=== PATIENT | female | born 2005 | race Caucasian/White ===

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

== ENCOUNTER 2024-04-06 10:42 | Inpatient (IN) | payer MEDICAID ==
--- NOTE | 2024-04-06 16:39 | XRAY ---
Indication: Excessive growth. Two-dimensional OB ultrasound performed. Comparison: None for this . Single intrauterine currently in cephalic presentation. heart rate 159 BPM. Visualized stomach and bladder unremarkable. Anterior placenta without abruption/previa. BPD measures 8.78 cm corresponding to 35 weeks 3 days. HC measures 31.69 cm corresponding to 35 weeks 4 days. AC measures 32.71 cm corresponding to 36 weeks 4 days. FL measures 7.05 cm corresponding to 36 weeks 1 day. Estimated weight 6 lbs. 6 oz., +/-15 ounces. Approximately 48 percentile. STEPHANIA is 4.2 cm. Impression: Single viable intrauterine with mean gestational age 36 weeks 4 days. Expected date confinement is May 04, 2024.
[2024-04-06 16:56] LABS: AMNISURE TEST RESULTS POSITIVE (NEGATIVE)
[2024-04-06] MEDS ORDERED: Nubain 10 MG/ML IV PRN (17:05)
[2024-04-06] MEDS ORDERED: Zofran 4 MG/2 ML VIAL IV PRN (17:05)
[2024-04-06] MEDS ORDERED: XYLOCAINE 1% HCL 20 ML MDV IJ PRN (17:05)
[2024-04-06] MEDS ORDERED: STADOL 2 MG IV PRN (17:05)
[2024-04-06 17:35] LABS: Absolute Neutrophil Ct (ANC) 12.42 x10^3/uL (1.56-6.13); BASOPHIL % 0.2 % (0.1-1.2); Basophil (Absolute #) 0.03 x10^3/uL (0.01-0.08); Eosinophil % 0.3 % (0.7-5.8); Eosinophil (Absolute #) 0.05 x10^3/uL (0.04-0.36); Hematocrit 29.1 % (34.1-44.9); Hemoglobin 10.2 g/dL (11.2-15.7); IMMATURE GRAN # 0.12 x10^3u/L (0.001-0.031); IMMATURE GRAN % 0.8 % (0.001-0.429); Lymphocyte (Absolute #) 2.09 x10^3/uL (1.18-3.74); Lymphocytes % 13.6 % (19.3-51.7); Mean Cell Volume 92.7 fL (79.4-94.8); Mean Corpuscular Hemoglobin 32.5 pg (25.6-32.2); Mean Corpuscular Hgb Concent. 35.1 g/dL (32.2-35.5); Mean Platelet Volume 10.1 fL (9.4-12.3); Monocyte (Absolute #) 0.61 x10^3/uL (0.24-0.86); Neutrophil % 81.1 % (34.0-71.1); Platelet Count 251 x10^3/uL (182-369); Red Blood Count 3.14 x10^6/uL (3.93-5.22); Red Cell Distribution Width 13.1 % (11.7-14.4); White Blood Count 15.3 x10^3/uL (3.98-10.04)
[2024-04-06] MEDS ORDERED: CLINDAMYCIN-D5W 900 MG/50 ML*** 900 MG/50 ML BAG IV ONE (17:35)
[2024-04-06] MEDS: CLINDAMYCIN-D5W 900 MG/50 ML*** 900 MG/50 ML BAG IV SCH (17:47)
[2024-04-06] MEDS: Lactated Ringers 1,000 ML IV SCH (17:48)
[2024-04-06 18:03] LABS: Amphetamine,Urine NEGATIVE (NEGATIVE); Barbiturate,Urine NEGATIVE (NEGATIVE); Cocaine,Urine NEGATIVE (NEGATIVE); Methadone,Urine NEGATIVE (NEGATIVE); Opiate,Urine NEGATIVE (NEGATIVE); PCP,Urine NEGATIVE (NEGATIVE); THC,Urine NEGATIVE (NEGATIVE)
[2024-04-06] MEDS ORDERED: BRETHINE 1 MG/ML SQ PRN (18:15)
[2024-04-06] MEDS ORDERED: Ephedrine Sulfate 50 MG/ML IV PRN (18:15)
[2024-04-06 18:33] LABS: ABO TYPING O; Antibody Screen NEGATIVE (NEGATIVE); RH TYPING POSITIVE
[2024-04-06] MEDS: PITOCIN 30 UNITS/ LR 500 ML 30 UNITS/500 ML PLAST..BAG IV SCH (18:57)
[2024-04-06] MEDS: TYLENOL EXTRA STRENGTH 500 MG PO PRN (20:03)
[2024-04-06] MEDS: Lactated Ringers 1,000 ML IV ONE (20:13)
[2024-04-06] MEDS ORDERED: FENTANYL 2 MCG-BUPIV 0.125%-NS 250 ML Epidur 250 ML EPIDURAL ONE (20:13)
[2024-04-06] MEDS: FENTANYL 2 MCG-BUPIV 0.125%-NS 250 ML Epidur 250 ML EPIDURAL SCH (20:52)
[2024-04-06] MEDS ORDERED: XYLOCAINE 2%/Epi 1:200000 20ML VIAL MPF ONE (21:12)
[2024-04-07] MEDS: PITOCIN 30 UNITS/ LR 500 ML 30 UNITS/500 ML PLAST..BAG IV SCH (03:29)
[2024-04-07] MEDS ORDERED: MOTRIN 400 MG PO PRN (05:08)
[2024-04-07] MEDS ORDERED: Mylicon 80MG PO PRN (05:08)
[2024-04-07] MEDS ORDERED: LANSINOH 40 GM ONE (07:30)
[2024-04-07] MEDS ORDERED: Dermoplast Spray ONE (07:30)
[2024-04-07] MEDS: Dermoplast Spray TP PRN (07:33)
[2024-04-07] MEDS: TUCKS TP PRN (07:33)
[2024-04-07] MEDS: LANSINOH 40 GM TOP PRN (07:34)
[2024-04-07] MEDS: Adacel Vial IM ONE (09:14)
[2024-04-07] MEDS: Docusate Sodium 100 MG PO SCH (09:16)
[2024-04-07] MEDS: Prozac 20 MG PO SCH (09:56)
[2024-04-07] MEDS: TYLENOL EXTRA STRENGTH 500 MG PO PRN (14:06)
[2024-04-07 16:13] LABS: Absolute Neutrophil Ct (ANC) 16.36 x10^3/uL (1.56-6.13); BASOPHIL % 0.2 % (0.1-1.2); Basophil (Absolute #) 0.04 x10^3/uL (0.01-0.08); Eosinophil % 0.3 % (0.7-5.8); Eosinophil (Absolute #) 0.05 x10^3/uL (0.04-0.36); Hematocrit 25.7 % (34.1-44.9); IMMATURE GRAN # 0.15 x10^3u/L (0.001-0.031); IMMATURE GRAN % 0.8 % (0.001-0.429); Lymphocyte (Absolute #) 1.96 x10^3/uL (1.18-3.74); Lymphocytes % 10.2 % (19.3-51.7); Mean Cell Volume 93.8 fL (79.4-94.8); Mean Corpuscular Hemoglobin 32.8 pg (25.6-32.2); Mean Platelet Volume 9.7 fL (9.4-12.3); Monocytes % 3.6 % (4.7-12.5); Neutrophil % 84.9 % (34.0-71.1); Platelet Count 220 x10^3/uL (182-369); Red Blood Count 2.74 x10^6/uL (3.93-5.22); Red Cell Distribution Width 13.1 % (11.7-14.4); White Blood Count 19.3 x10^3/uL (3.98-10.04)
[2024-04-08 05:11] LABS: Absolute Neutrophil Ct (ANC) 10.16 x10^3/uL (1.56-6.13); BASOPHIL % 0.4 % (0.1-1.2); Basophil (Absolute #) 0.05 x10^3/uL (0.01-0.08); Eosinophil % 0.9 % (0.7-5.8); Eosinophil (Absolute #) 0.12 x10^3/uL (0.04-0.36); Hematocrit 25.4 % (34.1-44.9); Hemoglobin 8.7 g/dL (11.2-15.7); IMMATURE GRAN # 0.12 x10^3u/L (0.001-0.031); IMMATURE GRAN % 0.9 % (0.001-0.429); Lymphocyte (Absolute #) 2.84 x10^3/uL (1.18-3.74); Lymphocytes % 20.4 % (19.3-51.7); Mean Cell Volume 95.5 fL (79.4-94.8); Mean Corpuscular Hemoglobin 32.7 pg (25.6-32.2); Mean Corpuscular Hgb Concent. 34.3 g/dL (32.2-35.5); Mean Platelet Volume 10.2 fL (9.4-12.3); Monocyte (Absolute #) 0.63 x10^3/uL (0.24-0.86); Monocytes % 4.5 % (4.7-12.5); Neutrophil % 72.9 % (34.0-71.1); Platelet Count 210 x10^3/uL (182-369); Red Blood Count 2.66 x10^6/uL (3.93-5.22); Red Cell Distribution Width 13.3 % (11.7-14.4); White Blood Count 13.9 x10^3/uL (3.98-10.04)
--- NOTE | 2024-04-08 07:57 | PCM.NOTE ---
Date and Time: 04/08/24 0755 Subjective Assessment: ppd 1 sp pt resting in bed and doing well able to ambulate and tolerate diet vss afebrile abd; soft uterus; firm lochia; mild hgb;8.7 a/p sp ppd 1 anemia will dc home tomorrow will continue iron supplementation bid should fu in office in 3 wks Objective Data Vital Signs: Vital Signs - 24 hr Temp Pulse Resp BP Pulse Ox 04/08/24 02:00 98.5 F 75 16 106/62 98 04/07/24 22:00 97.7 F 81 16 110/57 100 04/07/24 18:35 98.9 F 04/07/24 14:16 98.8 F 59 L 18 102/57 100 04/07/24 11:16 99.0 F 71 16 114/61 100 04/07/24 07:58 99.1 F 72 16 116/63 99 Pain Assessment - Last Documented Pain Intensity [Lower Anterior 1 ] Pain Intensity 1 Pain Scale Used 0-10 Pain Scale Intake and Output: Intake & Output 04/05/24 04/06/24 04/07/24 04/08/24 11:59 11:59 11:59 11:59 Intake Total 2740 Output Total 1330 Balance 1410 Weight 107.501 kg Lab Results: Lab Results-Last 24 Hours 04/07/24 04/08/24 Range/Units 16:10 04:06 WBC 19.3 H 13.9 H (3.98-10.04) x10^3/uL RBC 2.74 L 2.66 L (3.93-5.22) x10^6/uL Hgb 9.0 L 8.7 L (11.2-15.7) g/dL Hct 25.7 L 25.4 L (34.1-44.9) % MCV 93.8 95.5 H (79.4-94.8) fL MCH 32.8 H 32.7 H (25.6-32.2) pg MCHC 35.0 34.3 (32.2-35.5) g/dL RDW 13.1 13.3 (11.7-14.4) % Plt Count 220 210 (182-369) x10^3/uL MPV 9.7 10.2 (9.4-12.3) fL Gran % 84.9 H 72.9 H (34.0-71.1) % Immature Gran % (Auto) 0.8 H 0.9 H (0.001-0.429) % Nucleat RBC Rel Count 0.0 0.0 (0.00-0.2) % Eos # (Auto) 0.05 0.12 (0.04-0.36) x10^3/uL Immature Gran # (Auto) 0.15 H 0.12 H (0.001-0.031) x10^3u/L Absolute Lymphs (auto) 1.96 2.84 (1.18-3.74) x10^3/uL Absolute Monos (auto) 0.70 0.63 (0.24-0.86) x10^3/uL Absolute Nucleated RBC 0.00 0.00 (0.00-0.012) x10^3u/L Lymphocytes % 10.2 L 20.4 (19.3-51.7) % Monocytes % 3.6 L 4.5 L (4.7-12.5) % Eosinophils % 0.3 L 0.9 (0.7-5.8) % Basophils % 0.2 0.4 (0.1-1.2) % Absolute Granulocytes 16.36 H 10.16 H (1.56-6.13) x10^3/uL Basophils # 0.04 0.05 (0.01-0.08) x10^3/uL Radiology Exams: Radiology Procedures Category Date Time Status OB FOLLOW UP PER FETUS [US] Routine Exams 04/06/24 16:05 Completed Assessment/Plan (1) Vaginal delivery Current Visit: Yes Status: Acute Code(s): O80 - ENCOUNTER FOR FULL-TERM UNCOMPLICATED DELIVERY (2) premature rupture of membranes (PPROM) delivered, current hospitalization Current Visit: Yes Status: Acute Code(s): O42.919 - PRETRM TULIO ROM, UNSP TIME BETW RUPT AND ONST LABR, UNSP TRI
--- NOTE | 2024-04-08 08:02 | PCM.DS ---
Discharge Summary Date of Admission: 04/06/24 16:31 Admitting Physician: FEI DALLAS DO Consults: Consults on Case 04/06/24 18:16 Notify Anesthesia Provider PRN 04/07/24 09:59 Navigation ONCE Primary Care Provider: FEI DALLAS DO Allergies Allergies ibuprofen [From Advil] Allergy (Mild, Verified 04/06/24 19:46) Rash States can take any type of ibuprofen except Advil brand. amoxicillin Allergy (Verified 04/06/24 19:46) Penicillins Allergy (Verified 04/06/24 19:46) Hospital Summary - Hospital Course Hospital Course: pt admitted on april 06 with pprom at 36 1/7 wks gestation and was noted being 4 /80/-2 upon admission. pt subsequently progressed and had received antibiotic therapy of clindamycin and subsequently delivered on april 07 at 328 am delivering live baby boy without complication with nuchal cord x 1 that had been reduced during delivery. pt was noted having a right labial tear repaired with 2-0 chromic suture and hemostasis obtained. pt was noted having hgb of 8.7 during period and was sent rx of iron sulfate 325mg bid. pt doing well at this time and stable for discharge on april 09. pt advised to fu in office in 3 wks for care and was instructed to call me for any issues that may arise upon discharge. all questions answered to her satisfaction and at this time stable for discharge on april 09. - Vitals & Intake/Output Vital Signs: Vital Signs Temperature 98.5 F 04/08/24 02:00 Pulse Rate 75 04/08/24 02:00 Respiratory Rate 16 04/08/24 02:00 Blood Pressure 106/62 04/08/24 02:00 O2 Sat by Pulse Oximetry 98 04/08/24 02:00 Intake & Output: Intake & Output 04/05/24 04/06/24 04/07/24 04/08/24 11:59 11:59 11:59 11:59 Intake Total 2740 Output Total 1330 Balance 1410 Weight 107.501 kg - Lab Result Diagrams: 04/08/24 04:06 Lab Results-Last 24 Hrs: Lab Results-Last 24 Hours 04/07/24 04/08/24 Range/Units 16:10 04:06 WBC 19.3 H 13.9 H (3.98-10.04) x10^3/uL RBC 2.74 L 2.66 L (3.93-5.22) x10^6/uL Hgb 9.0 L 8.7 L (11.2-15.7) g/dL Hct 25.7 L 25.4 L (34.1-44.9) % MCV 93.8 95.5 H (79.4-94.8) fL MCH 32.8 H 32.7 H (25.6-32.2) pg MCHC 35.0 34.3 (32.2-35.5) g/dL RDW 13.1 13.3 (11.7-14.4) % Plt Count 220 210 (182-369) x10^3/uL MPV 9.7 10.2 (9.4-12.3) fL Gran % 84.9 H 72.9 H (34.0-71.1) % Immature Gran % (Auto) 0.8 H 0.9 H (0.001-0.429) % Nucleat RBC Rel Count 0.0 0.0 (0.00-0.2) % Eos # (Auto) 0.05 0.12 (0.04-0.36) x10^3/uL Immature Gran # (Auto) 0.15 H 0.12 H (0.001-0.031) x10^3u/L Absolute Lymphs (auto) 1.96 2.84 (1.18-3.74) x10^3/uL Absolute Monos (auto) 0.70 0.63 (0.24-0.86) x10^3/uL Absolute Nucleated RBC 0.00 0.00 (0.00-0.012) x10^3u/L Lymphocytes % 10.2 L 20.4 (19.3-51.7) % Monocytes % 3.6 L 4.5 L (4.7-12.5) % Eosinophils % 0.3 L 0.9 (0.7-5.8) % Basophils % 0.2 0.4 (0.1-1.2) % Absolute Granulocytes 16.36 H 10.16 H (1.56-6.13) x10^3/uL Basophils # 0.04 0.05 (0.01-0.08) x10^3/uL Micro Results-Entire Visit: Microbiology 04/06/24 22:00 Urine Culture - Preliminary Urine, Indwelling Catheter GRAM NEGATIVE ID AND SENSITIVITY PENDING - Radiology Exams Ordered Rad Exams-Entire Visit: Radiology Procedures Category Date Time Status OB FOLLOW UP PER FETUS [US] Routine Exams 04/06/24 16:05 Completed - Procedures and Test Procedures and Tests throughout Hospitalization: Therapy Orders & Screens 04/07/24 03:38 Standby ROUTINE Comment: Diagnosis: IUP Final Diagnosis/Problem List - Final Discharge Diagnosis/Problem (1) Vaginal delivery Current Visit: Yes Status: Acute Code(s): O80 - ENCOUNTER FOR FULL-TERM UNCOMPLICATED DELIVERY (2) premature rupture of membranes (PPROM) delivered, current hospitalization Current Visit: Yes Status: Acute Code(s): O42.919 - PRETRM TULIO ROM, UNSP TIME BETW RUPT AND ONST LABR, UNSP TRI - Discharge Disposition: Home, Self-Care Condition: Stable Prescriptions: No Action Nitrofurantoin Macro 100 mg [Macrobid 100MG Capsule] 100 mg PO DAILY Fluoxetine HCl 20 mg PO DAILY Pnv No.95/Ferrous Fum/Folic AC [ Vitamin Tablet] 1 each PO DAILY Ferrous Sulfate [Iron] 325 mg PO BID Docusate Sodium [Stool Softener] 100 mg PO BID Follow up with: FEI DALLAS DO [Primary Care Provider] - 3 weeks (should call me for any issues that may arise upon discharge should fu in office in 3 wks rx for iron sulfate sent to her pharmacy to take twice daily)
[2024-04-08 08:37] LABS: RPR Non Reactive (Non Reactive)
[2024-04-08] MEDS: FERREX 150 PO SCH (09:48)
[2024-04-08] MEDS ORDERED: FERREX 150 PO SCH (10:00)
[2024-04-08 21:52] VITALS: TEMP 98.8
[2024-04-09 03:05] VITALS: O2SAT 99
[2024-04-09 09:34] VITALS: BP 131/75; PULSE 88; RESP 18
[2024-04-10 18:57] LABS: Benzodiazepines Negative ng/mL (Cutoff=300)
== END 2024-04-09 09:25 | disposition home or self-care (01) | DRG 807 ==
LOC: RAD 16:02 → EDSTATUS 16:30 → OB 16:30 → OBSVTOIN 16:31 → OB 16:31
PROVIDERS: ADMIT Obstetrics & Gynecology; ATTEND Obstetrics & Gynecology
PROC: 10E0XZZ Delivery of Products of Conception, External Approach (ICD-10-PCS; principal; 2024-04-07)
PROC: 0HQ9XZZ Repair Perineum Skin, External Approach (ICD-10-PCS; 2024-04-07)
DX: O42.919 Preterm premature rupture of membranes, unspecified as to length of time between rupture and onset of labor, unspecified trimester (principal); Z37.0 Single live birth; O69.81X0 Labor and delivery complicated by cord around neck, without compression, not applicable or unspecified; O70.0 First degree perineal laceration during delivery; Z3A.36 36 weeks gestation of pregnancy; O36.63X0 Maternal care for excessive fetal growth, third trimester, not applicable or unspecified; D64.9 Anemia, unspecified
CPT/HCPCS: 36415; 59409; 76816; 80307; 84112; 85025; 86592; 86850; 86900; 86901; 87077; 87086; 87186; 90471; 90715; 94799; J2590; A9270-GY

== ENCOUNTER 2025-06-29 12:33 | Observation (INO) | payer OTHER ==
--- NOTE | 2025-06-29 14:14 | ERPHSYRPT ---
- History of Present Illness Time Seen by Provider: 06/29/25 14:09 Source: patient Exam Limitations: no limitations Patient Subjective Stated Complaint: PT STATES DR. DAMON TOLD HER TO COME TO THE ER TO GET FLUIDS Triage Nursing Assessment: PT ARRIVES TO THE ER VIA PRIVATE VEHICLE. PT AMBULATES INTO THE ER WITHOUT DIFFICULTIES. PT IS ALERT AND ORIENTED X4, NO SIGNS OF RESPIRATORY DISTRESS, PULSES PRESENT AND EQUAL BILATERALLY. PT STATES THAT SHE IS 14 WEEKS AND HAS BEEN EXPERIENCING SEVER NAUSEA/VOMITING SINCE SATURDAY.PT HAS NOT BEEN ABLE TO KEEP DOWN ANY FLUIDS OR FOODS. PT STATES THAT SHE CALLED DR. VILLAFANA OFFICE WHO THEN TOLD HER TO COME TO THE ER IN ORDER TO GET FLUIDS. PT STATES SHE DOES HAVE ZOFRAN 8 MG ODT THAT SHE TAKES AT HOME BUT IT HAS NOT TOUCHED THE NAUSEA OR VOMITING. PT IS PALE ON PRESENTATION. PT IS ACTIVELY VOMITING SPRITE THAT SHE TRIED TO DRINK DUE TO BEING THIRSTY. Physician History: Patient is a 20-year-old female no significant past medical history currently 14 weeks presents to our ED as a referral from her [employer] physician for evaluation and treatment of intractable nausea and vomiting and spite of taking her Zofran ODT. Patient states she has been vomiting since Saturday. Patient unable to tolerate solids or fluids. No pain. Patient states she feels thirsty but every time she tries to drink she vomits. Patient otherwise feels well. She voices no other complaints or concerns at this time. Patient denies vaginal bleeding. No pelvic pain. Portions of this note were created with voice recognition technology. There may be grammatical, spelling, punctuation or sound alike errors Timing/Duration: today Severity: moderate Modifying Factors: Improves With: nothing Associated Symptoms: denies symptoms Allergies/Adverse Reactions: ibuprofen [From Advil] Allergy (Mild, Verified 06/29/25 12:52) Rash States can take any type of ibuprofen except Advil brand. amoxicillin Allergy (Verified 06/29/25 12:52) Penicillins Allergy (Verified 06/29/25 12:52) Home Medications: Docusate Sodium [Stool Softener] 100 mg PO BID 04/06/24 [History] Ferrous Sulfate [Iron] 325 mg PO BID 04/06/24 [History] Fluoxetine HCl 20 mg PO DAILY 04/06/24 [History] Pnv No.95/Ferrous Fum/Folic AC [ Vitamin Tablet] 1 each PO DAILY 04/06/24 [History] Ondansetron [Ondansetron Odt] 8 mg PO Q8H PRN PRN 06/29/25 [History] Hx Tetanus, Diphtheria Vaccination/Date Given: (UNAWARE) Hx Influenza Vaccination/Date Given: No Hx Pneumococcal Vaccination/Date Given: No Immunizations Up to Date: Yes Travel Risk - International Travel Have you traveled outside of the country in past 3 weeks: No - Emerging Infectious Disease Are you exhibiting symptoms associated with any current EIDs: Yes Symptoms: Abdominal Pain, Vomitting - Review of Systems All Other Systems: Reviewed and Negative - Past Medical History Pertinent Past Medical History: Yes Neurological History: No Pertinent History ENT History: No Pertinent History Cardiac History: No Pertinent History Respiratory History: No Pertinent History Endocrine Medical History: No Pertinent History Musculoskeletal History: No Pertinent History GI Medical History: No Pertinent History History: No Pertinent History Psycho-Social History: Anxiety, Depression Female Reproductive Disorders: No Pertinent History - Past Surgical History Past Surgical History: No Neuro Surgical History: No Pertinent History Cardiac: No Pertinent History Respiratory: No Pertinent History Gastrointestinal: No Pertinent History Genitourinary: No Pertinent History Musculoskeletal: No Pertinent History Female Surgical History: No Pertinent History - Female History Hx Last Menstrual Period: 02/09/2025 Hx Now: Yes Gestational Age: 14 WEEKS - Social History Smoking Status: Never smoker Exposure to second hand smoke: No Drug Use: none - Social Determinants of Health Will the patient participate in the screening: Yes Do you worry about a steady place to live?: No Do you have any problems with any of the following?: No known problems In the past 12 months,have you had to go without utilities?: No Transportation Issues: No Has anyone in your support network made you feel unsafe?: No Have you or anyone in your house had to go w/o enough food: No - Nursing Vital Signs Nursing Vital Signs: Initial Vital Signs Temperature 98.2 F 06/29/25 12:48 Pulse Rate 103 H 06/29/25 12:48 Respiratory Rate 15 06/29/25 12:48 Blood Pressure 136/85 06/29/25 12:48 O2 Sat by Pulse Oximetry 98 06/29/25 12:48 Pain Scale Pain Intensity 0 - Physical Exam General Appearance: no apparent distress, alert Eye Exam: PERRL/EOMI, eyes nml inspection Ears, Nose, Throat Exam: normal ENT inspection, moist mucous membranes Neck Exam: normal inspection, full range of motion Respiratory Exam: normal breath sounds, lungs clear, airway intact, No respiratory distress Cardiovascular Exam: regular rate/rhythm, normal heart sounds Gastrointestinal/Abdomen Exam: soft, normal bowel sounds, No tenderness, No mass Pelvic Exam: normal external exam, other (No active bleeding), No adnexal mass, No cervical motion tenderness, No uterine tenderness Back Exam: normal inspection, normal range of motion, No CVA tenderness, No vertebral tenderness Extremity Exam: normal inspection, normal range of motion, pelvis stable Neurologic Exam: alert, oriented x 3, cooperative, normal mood/affect, sensation nml, No motor deficits Skin Exam: normal color, warm, dry, No rash Lymphatic Exam: No adenopathy SpO2 Interpretation: normal SpO2: 99 O2 Delivery: Room Air - Course Nursing assessment & vital signs reviewed: Yes Ordered Tests: Active Orders 24 hr Category Date Time Status IV Insertion STAT Care 06/29/25 14:42 Active CBC W DIFF Stat Lab 06/29/25 15:00 Completed CMP Stat Lab 06/29/25 15:00 Completed LIPASE Stat Lab 06/29/25 15:00 Completed TROPONIN Q4H Lab 06/29/25 15:00 Completed TROPONIN Q4H Lab 06/29/25 18:45 Ordered TROPONIN Q4H Lab 06/29/25 22:45 Ordered UA W/RFX UR CULTURE Stat Lab 06/29/25 15:21 Completed Transfer Order Routine Transfer 06/29/25 Ordered Medication Summary Generic Name Dose Route Start Last Admin Trade Name Freq PRN Reason Stop Dose Admin Dextrose/Sodium Chloride 1,000 mls @ 100 mls/hr 06/29/25 14:45 06/29/25 15:23 Dextrose 5% -0.45 Nacl 1000 Ml IV 07/29/25 14:44 100 mls/hr .Q10H MATIAS Administration Discontinued Medications Generic Name Dose Route Start Last Admin Trade Name Freq PRN Reason Stop Dose Admin Metoclopramide HCl 10 mg 06/29/25 14:44 06/29/25 15:23 Metoclopramide Hcl 10 Mg/2 Ml Vial IV 06/29/25 14:45 10 mg STAT ONE Administration Metoclopramide HCl Confirm 06/29/25 15:18 Metoclopramide Hcl 10 Mg/2 Ml Vial Administered 06/29/25 15:19 Dose 10 mg .ROUTE .STK-MED ONE Lab/Rad Data: Laboratory Result Diagrams 06/29/25 15:00 06/29/25 15:00 Laboratory Results 06/29/25 06/29/25 06/29/25 Range/Units 15:21 15:00 15:00 WBC (3.98-10.04) x10^3/uL RBC (3.93-5.22) x10^6/uL Hgb (11.2-15.7) g/dL Hct (34.1-44.9) % MCV (79.4-94.8) fL MCH (25.6-32.2) pg MCHC (32.2-35.5) g/dL RDW (11.7-14.4) % Plt Count (182-369) x10^3/uL MPV (9.4-12.3) fL Gran % (34.0-71.1) % Immature Gran % (Auto) (0.001-0.429) % Nucleat RBC Rel Count (0.00-0.2) % Eos # (Auto) (0.04-0.36) x10^3/uL Immature Gran # (Auto) (0.001-0.031) x10^3u/L Absolute Lymphs (auto) (1.18-3.74) x10^3/uL Absolute Monos (auto) (0.24-0.86) x10^3/uL Absolute Nucleated RBC (0.00-0.012) x10^3u/L Lymphocytes % (19.3-51.7) % Monocytes % (4.7-12.5) % Eosinophils % (0.7-5.8) % Basophils % (0.1-1.2) % Absolute Granulocytes (1.56-6.13) x10^3/uL Basophils # (0.01-0.08) x10^3/uL Sodium 139 (135-145) mmol/L Potassium 3.8 (3.5-5.1) mmol/L Chloride 105 (98-107) mmol/L Carbon Dioxide 21 L (22-30) mmol/L Anion Gap 17.6 H (5-15) MEQ/L BUN 9 (7-17) mg/dL Creatinine 0.49 L (0.52-1.04) mg/dL Estimated GFR 137.4 ML/MIN Glucose 115 H (74-106) mg/dL Calcium 9.6 (8.4-10.2) mg/dL Total Bilirubin 1.00 (0.2-1.3) mg/dL AST 22 (14-36) U/L ALT 13 (0-35) U/L Alkaline Phosphatase 82 (38-126) U/L Troponin I < 0.012 (0.000-0.033) ng/mL Serum Total Protein 8.2 (6.3-8.2) g/dL Albumin 4.9 (3.5-5.0) g/dL Lipase 57 (23-300) U/L Urine Color Dark Yellow A (Yellow) Urine Appearance Clear (Clear) Urine pH 6.0 (4.6-8.0) Ur Specific [place] >=1.030 A (1.005-1.030) Urine Protein 100 A (Negative) Urine Glucose (UA) Negative (Negative) mg/dL Urine Ketones >=160 A (Negative) Urine Blood Negative (Negative) Urine Nitrite Negative (Negative) Urine Bilirubin Small A (Negative) Urine Urobilinogen 1.0 A (0.2) mg/dL Ur Leukocyte Esterase Negative (Negative) U Hyaline Cast (Auto) NONE SEEN (0-2) /LPF Urine Microscopic RBC 3-5 (0-5) /HPF Urine Microscopic WBC 0-2 (0-5) /HPF Ur Epithelial Cells Few (None Seen) /HPF Urine Bacteria None Seen (None Seen) /HPF Urine Culture Reflexed NO (NO) 06/29/25 Range/Units 15:00 WBC 18.3 H (3.98-10.04) x10^3/uL RBC 3.77 L (3.93-5.22) x10^6/uL Hgb 12.3 (11.2-15.7) g/dL Hct 34.9 (34.1-44.9) % MCV 92.6 (79.4-94.8) fL MCH 32.6 H (25.6-32.2) pg MCHC 35.2 (32.2-35.5) g/dL RDW 13.5 (11.7-14.4) % Plt Count 342 (182-369) x10^3/uL MPV 9.7 (9.4-12.3) fL Gran % 93.6 H (34.0-71.1) % Immature Gran % (Auto) 0.5 H (0.001-0.429) % Nucleat RBC Rel Count 0.0 (0.00-0.2) % Eos # (Auto) 0 L (0.04-0.36) x10^3/uL Immature Gran # (Auto) 0.09 H (0.001-0.031) x10^3u/L Absolute Lymphs (auto) 0.77 L (1.18-3.74) x10^3/uL Absolute Monos (auto) 0.29 (0.24-0.86) x10^3/uL Absolute Nucleated RBC 0.00 (0.00-0.012) x10^3u/L Lymphocytes % 4.2 L (19.3-51.7) % Monocytes % 1.6 L (4.7-12.5) % Eosinophils % 0.0 L (0.7-5.8) % Basophils % 0.1 (0.1-1.2) % Absolute Granulocytes 17.13 H (1.56-6.13) x10^3/uL Basophils # 0.02 (0.01-0.08) x10^3/uL Sodium (135-145) mmol/L Potassium (3.5-5.1) mmol/L Chloride (98-107) mmol/L Carbon Dioxide (22-30) mmol/L Anion Gap (5-15) MEQ/L BUN (7-17) mg/dL Creatinine (0.52-1.04) mg/dL Estimated GFR ML/MIN Glucose (74-106) mg/dL Calcium (8.4-10.2) mg/dL Total Bilirubin (0.2-1.3) mg/dL AST (14-36) U/L ALT (0-35) U/L Alkaline Phosphatase (38-126) U/L Troponin I (0.000-0.033) ng/mL Serum Total Protein (6.3-8.2) g/dL Albumin (3.5-5.0) g/dL Lipase (23-300) U/L Urine Color (Yellow) Urine Appearance (Clear) Urine pH (4.6-8.0) Ur Specific [place] (1.005-1.030) Urine Protein (Negative) Urine Glucose (UA) (Negative) mg/dL Urine Ketones (Negative) Urine Blood (Negative) Urine Nitrite (Negative) Urine Bilirubin (Negative) Urine Urobilinogen (0.2) mg/dL Ur Leukocyte Esterase (Negative) U Hyaline Cast (Auto) (0-2) /LPF Urine Microscopic RBC (0-5) /HPF Urine Microscopic WBC (0-5) /HPF Ur Epithelial Cells (None Seen) /HPF Urine Bacteria (None Seen) /HPF Urine Culture Reflexed (NO) - Progress Progress: improved Progress Note: Spoke to Dr. Damon at 5:05 PM. In light of her significant ketones in urine he advises admitting for hyperemesis gravidarum. 06/29/25 17:05 Patient is a 20-year-old female no significant past medical history currently 14 weeks presents to our ED as a referral from her [employer] physician for evaluation and treatment of intractable nausea and vomiting and spite of taking her Zofran ODT. Patient states she has been vomiting since Saturday. Physical exam otherwise nonremarkable. heart tones are in the 150s. Patient has no complaints regarding her . No vaginal discharge or cramping. Laboratory workup suggest dehydration. Patient has a significant ketonuria. Patient received D5 half-normal and Reglan. Symptoms improved. However patient not ready for discharge at this time. Patient will be admitted for further evaluation and treatment. Plan of care discussed with patient. She agrees to admission to [facility] for further evaluation and treatment. Leukocytosis observed on blood workup. However this is likely secondary to hyperemesis gravidarum. There are no obvious nidus of infection. No fever. No UTI. No cough. No skin complaints or issues observed. Differential diagnosis includes hyperemesis gravidarum, gastritis, viral enteritis Portions of this note were created with voice recognition technology. There may be grammatical, spelling, punctuation or sound alike errors Complexity of problems addressed is moderate acute complicated. No critical care time. Complex of data reviewed and analyzed is extensive. Test ordered test reviewed results analyzed and correlated clinically with history and physical exam. Management discussed with Dr. Damon who accepts admission to observation. Risk of complication and or risk of morbidity/mortality of patient management is high. Patient requires hospitalization for further evaluation and treatment. Vital stable. Time spent to admit patient is approximately 20 minutes. Plan of care established for shared decision making. No social determinants of health present to impede follow-up. Portions of this note were created with voice recognition technology. There may be grammatical, spelling, punctuation or sound alike errors 06/29/25 17:23 06/29/25 17:26 Counseled pt/family regarding: lab results, diagnosis - Departure Departure Disposition: Home Clinical Impression: Hyperemesis gravidarum, Dehydration, Ketonuria, Leukocytosis Condition: Stable Critical Care Time: No Referrals: KENNETH LUCAS, DIRECTOR OF TEACHER EDUCATION [Primary Care Provider, [facility]] - Follow up/PCP as directed Additional Instructions: Discharge/Care Plan [facility] [employer] was seen on 06/29/25 in the Emergency Room. The patient was counseled regarding Diagnosis,Lab results, Imaging studies, need for follow up and when to return to the Emergency Room. Prescriptions given: Discharge Note I have spoken with the patient and/or caregivers. I have explained the patient's condition, diagnosis and treatment plan based on the information available to me at this time. I have answered the patient's and/or caregiver's questions and addressed any concerns. The patient and/or caregivers have as good understanding of the patient's diagnosis, condition and treatment plan as can be expected at this point. The vital signs have been stable. The patient's condition is stable and appropriate for discharge from the emergency department. The patient will pursue further outpatient evaluation with the primary care physician or other designated or consulting physician as outlined in the discharge instructions. The patient and/or caregivers are agreeable to this plan of care and follow-up instructions have been explained in detail. The patient and/or caregivers have received these instruction. The patient/and or caregivers are aware that any significant change in condition or worsening of symptoms should prompt an immediate return to this or the closest emergency department or call 911.
[2025-06-29 15:07] LABS: BASOPHIL % 0.1 % (0.1-1.2); Basophil (Absolute #) 0.02 x10^3/uL (0.01-0.08); Eosinophil (Absolute #) 0 x10^3/uL (0.04-0.36); Hematocrit 34.9 % (34.1-44.9); Hemoglobin 12.3 g/dL (11.2-15.7); IMMATURE GRAN # 0.09 x10^3u/L (0.001-0.031); IMMATURE GRAN % 0.5 % (0.001-0.429); Lymphocyte (Absolute #) 0.77 x10^3/uL (1.18-3.74); Mean Corpuscular Hemoglobin 32.6 pg (25.6-32.2); Mean Corpuscular Hgb Concent. 35.2 g/dL (32.2-35.5); Monocyte (Absolute #) 0.29 x10^3/uL (0.24-0.86); NUCLEATED RBC # 0.00 x10^3u/L (0.00-0.012); NUCLEATED RBC % 0.0 % (0.00-0.2); Platelet Count 342 x10^3/uL (182-369); Red Blood Count 3.77 x10^6/uL (3.93-5.22); White Blood Count 18.3 x10^3/uL (3.98-10.04)
[2025-06-29] MEDS ORDERED: Reglan 10 MG/2 ML ONE (15:18)
[2025-06-29] MEDS ORDERED: Dextrose 5% -0.45 NaCl 1000 ML 1,000 ML IV ONE (15:18)
[2025-06-29] MEDS: Dextrose 5% -0.45 NaCl 1000 ML 1,000 ML IV SCH (15:23)
[2025-06-29] MEDS: Reglan 10 MG/2 ML IV ONE (15:23)
[2025-06-29 15:25] LABS: Calcium 9.6 mg/dL (8.4-10.2); Carbon Dioxide 21.0 mmol/L (22-30); Creatinine 1 0.49 mg/dL (0.52-1.04); EST GLOMERULAR FILTRATION RATE 137.4 ML/MIN; Glucose 115.0 mg/dL (74-106); Potassium 3.8 mmol/L (3.5-5.1); SGOT/AST 22.0 U/L (14-36); SGPT/ALT 13.0 U/L (0-35); Total Protein 8.2 g/dL (6.3-8.2)
[2025-06-29 16:53] LABS: Glucose, Urine Negative (Negative); Protein,Urine Dip 100 (Negative); WBC 0-2 /HPF (0-5)
[2025-06-29] MEDS ORDERED: Lactated Ringers 1,000 ML IV ONE (17:28)
[2025-06-29] MEDS: Lactated Ringers 1,000 ML IV STA (17:29)
[2025-06-29] MEDS ORDERED: Zofran 4 MG/2 ML VIAL IV PRN (21:40)
[2025-06-29] MEDS: Zofran 4 MG/2 ML VIAL IV PRN (21:48)
[2025-06-30] MEDS: Lactated Ringers 1,000 ML IV SCH ×2 (01:11→11:58)
[2025-06-30 01:17] VITALS: RESP 16
[2025-06-30] MEDS: Reglan 10 MG/2 ML IV SCH ×2 (02:23→10:17)
[2025-06-30 05:26] LABS: Calcium 8.6 mg/dL (8.4-10.2); Carbon Dioxide 23.0 mmol/L (22-30); Creatinine 1 0.49 mg/dL (0.52-1.04); EST GLOMERULAR FILTRATION RATE 137.4 ML/MIN; Glucose 98.0 mg/dL (74-106); Potassium 3.1 mmol/L (3.5-5.1); SGOT/AST 96.0 U/L (14-36); SGPT/ALT 71.0 U/L (0-35); Total Protein 6.5 g/dL (6.3-8.2)
[2025-06-30] MEDS: POTASSIUM CHLORIDE 20 mEq IN WATER 100ML 20 MEQ/100 ML BAG IV ONE (06:54)
[2025-06-30] MEDS ORDERED: Zofran 4 MG/2 ML VIAL IV PRN (07:11)
[2025-06-30] MEDS ORDERED: THIAMINE 200 MG/2 ML IV SCH (07:15)
--- NOTE | 2025-06-30 08:00 | PCM.NOTE ---
Date and Time: 06/30/25 0757 Subjective Assessment: pt admitted yesterday at 14 wks gestation for hyperemesis secondary to ongoing nausea and vomiting. pt was noted having large ketones in urine as well as elevated specific gravity on ua. vss afebrile abd; soft ext; no clubbing cyanosis or edema labs reviewed a/p iup 14 wks with hyperemesis hypokalemia will continue zofran staggered with reglan will supplement with potassium and repeat labs Objective Data Vital Signs: Vital Signs - 24 hr Temp Pulse Resp BP BP Pulse Ox 06/30/25 06:04 98.4 F 65 16 96/52 06/30/25 00:24 98.6 F 80 16 107/64 98 06/29/25 19:45 98 F 88 18 110/71 100 06/29/25 18:08 98.3 F 80 16 139/73 100 06/29/25 17:28 99 06/29/25 17:00 112/57 99 06/29/25 16:30 114/57 06/29/25 16:00 107/69 100 06/29/25 15:30 120/72 99 06/29/25 15:29 82 16 135/72 100 06/29/25 14:30 72 16 144/83 99 06/29/25 14:00 83 15 131/103 99 06/29/25 13:30 84 16 134/93 99 06/29/25 13:00 85 17 130/82 99 06/29/25 12:51 102 H 17 136/85 99 06/29/25 12:48 98.2 F 103 H 15 136/85 98 Pain Assessment - Last Documented Pain Intensity 0 Intake and Output: Intake & Output 06/27/25 06/28/25 06/29/25 06/30/25 11:59 11:59 11:59 11:59 Intake Total 2600 Output Total 200 Balance 2400 Weight 85 kg Lab Results: Lab Results-Last 24 Hours 06/29/25 06/29/25 06/29/25 Range/Units 15:00 15:00 15:00 WBC 18.3 H (3.98-10.04) x10^3/uL RBC 3.77 L (3.93-5.22) x10^6/uL Hgb 12.3 (11.2-15.7) g/dL Hct 34.9 (34.1-44.9) % MCV 92.6 (79.4-94.8) fL MCH 32.6 H (25.6-32.2) pg MCHC 35.2 (32.2-35.5) g/dL RDW 13.5 (11.7-14.4) % Plt Count 342 (182-369) x10^3/uL MPV 9.7 (9.4-12.3) fL Gran % 93.6 H (34.0-71.1) % Immature Gran % (Auto) 0.5 H (0.001-0.429) % Nucleat RBC Rel Count 0.0 (0.00-0.2) % Eos # (Auto) 0 L (0.04-0.36) x10^3/uL Immature Gran # (Auto) 0.09 H (0.001-0.031) x10^3u/L Absolute Lymphs (auto) 0.77 L (1.18-3.74) x10^3/uL Absolute Monos (auto) 0.29 (0.24-0.86) x10^3/uL Absolute Nucleated RBC 0.00 (0.00-0.012) x10^3u/L Lymphocytes % 4.2 L (19.3-51.7) % Monocytes % 1.6 L (4.7-12.5) % Eosinophils % 0.0 L (0.7-5.8) % Basophils % 0.1 (0.1-1.2) % Absolute Granulocytes 17.13 H (1.56-6.13) x10^3/uL Basophils # 0.02 (0.01-0.08) x10^3/uL Sodium 139 (135-145) mmol/L Potassium 3.8 (3.5-5.1) mmol/L Chloride 105 (98-107) mmol/L Carbon Dioxide 21 L (22-30) mmol/L Anion Gap 17.6 H (5-15) MEQ/L BUN 9 (7-17) mg/dL Creatinine 0.49 L (0.52-1.04) mg/dL Estimated GFR 137.4 ML/MIN Glucose 115 H (74-106) mg/dL Calcium 9.6 (8.4-10.2) mg/dL Total Bilirubin 1.00 (0.2-1.3) mg/dL AST 22 (14-36) U/L ALT 13 (0-35) U/L Alkaline Phosphatase 82 (38-126) U/L Troponin I < 0.012 (0.000-0.033) ng/mL Serum Total Protein 8.2 (6.3-8.2) g/dL Albumin 4.9 (3.5-5.0) g/dL Lipase 57 (23-300) U/L Urine Color (Yellow) Urine Appearance (Clear) Urine pH (4.6-8.0) Ur Specific [place] (1.005-1.030) Urine Protein (Negative) Urine Glucose (UA) (Negative) mg/dL Urine Ketones (Negative) Urine Blood (Negative) Urine Nitrite (Negative) Urine Bilirubin (Negative) Urine Urobilinogen (0.2) mg/dL Ur Leukocyte Esterase (Negative) U Hyaline Cast (Auto) (0-2) /LPF Urine Microscopic RBC (0-5) /HPF Urine Microscopic WBC (0-5) /HPF Ur Epithelial Cells (None Seen) /HPF Urine Bacteria (None Seen) /HPF Urine Culture Reflexed (NO) 06/29/25 06/29/25 06/30/25 Range/Units 15:21 18:55 04:55 WBC (3.98-10.04) x10^3/uL RBC (3.93-5.22) x10^6/uL Hgb (11.2-15.7) g/dL Hct (34.1-44.9) % MCV (79.4-94.8) fL MCH (25.6-32.2) pg MCHC (32.2-35.5) g/dL RDW (11.7-14.4) % Plt Count (182-369) x10^3/uL MPV (9.4-12.3) fL Gran % (34.0-71.1) % Immature Gran % (Auto) (0.001-0.429) % Nucleat RBC Rel Count (0.00-0.2) % Eos # (Auto) (0.04-0.36) x10^3/uL Immature Gran # (Auto) (0.001-0.031) x10^3u/L Absolute Lymphs (auto) (1.18-3.74) x10^3/uL Absolute Monos (auto) (0.24-0.86) x10^3/uL Absolute Nucleated RBC (0.00-0.012) x10^3u/L Lymphocytes % (19.3-51.7) % Monocytes % (4.7-12.5) % Eosinophils % (0.7-5.8) % Basophils % (0.1-1.2) % Absolute Granulocytes (1.56-6.13) x10^3/uL Basophils # (0.01-0.08) x10^3/uL Sodium 135 (135-145) mmol/L Potassium 3.1 L (3.5-5.1) mmol/L Chloride 103 (98-107) mmol/L Carbon Dioxide 23 (22-30) mmol/L Anion Gap 11.7 (5-15) MEQ/L BUN 10 (7-17) mg/dL Creatinine 0.49 L (0.52-1.04) mg/dL Estimated GFR 137.4 ML/MIN Glucose 98 (74-106) mg/dL Calcium 8.6 (8.4-10.2) mg/dL Total Bilirubin 0.90 (0.2-1.3) mg/dL AST 96 H (14-36) U/L ALT 71 H (0-35) U/L Alkaline Phosphatase 65 (38-126) U/L Troponin I < 0.012 (0.000-0.033) ng/mL Serum Total Protein 6.5 (6.3-8.2) g/dL Albumin 3.9 (3.5-5.0) g/dL Lipase (23-300) U/L Urine Color Dark Yellow A (Yellow) Urine Appearance Clear (Clear) Urine pH 6.0 (4.6-8.0) Ur Specific [place] >=1.030 A (1.005-1.030) Urine Protein 100 A (Negative) Urine Glucose (UA) Negative (Negative) mg/dL Urine Ketones >=160 A (Negative) Urine Blood Negative (Negative) Urine Nitrite Negative (Negative) Urine Bilirubin Small A (Negative) Urine Urobilinogen 1.0 A (0.2) mg/dL Ur Leukocyte Esterase Negative (Negative) U Hyaline Cast (Auto) NONE SEEN (0-2) /LPF Urine Microscopic RBC 3-5 (0-5) /HPF Urine Microscopic WBC 0-2 (0-5) /HPF Ur Epithelial Cells Few (None Seen) /HPF Urine Bacteria None Seen (None Seen) /HPF Urine Culture Reflexed NO (NO) Medications: Medications Generic Name Dose Route Start Last Admin Trade Name Arely PRN Reason Stop Dose Admin Lactated Ringer's 1,000 mls @ 125 mls/hr 06/30/25 01:30 Lactated Ringers IV 07/30/25 01:29 .Q8H MATIAS Potassium Chloride 20 meq in 100 mls @ 50 mls/hr 06/30/25 06:38 06/30/25 06:54 Potassium Chloride 20 Meq In Water 100ml IV 06/30/25 08:37 50 mls/hr STAT ONE Administration Thiamine HCl 300 mg/ Sodium 103 mls @ 206 mls/hr 06/30/25 08:00 Chloride IV 07/30/25 07:59 DAILY MATIAS Metoclopramide HCl 10 mg 06/30/25 14:00 Metoclopramide Hcl 10 Mg/2 Ml Vial IV 07/29/25 19:14 Q8HT MATIAS Ondansetron HCl 4 mg 06/30/25 07:11 Ondansetron Hcl 4 Mg/2 Ml Vial IV 07/29/25 21:42 Q8H PRN PRN NAUSEA/VOMITING Discontinued Medications Generic Name Dose Route Start Last Admin Trade Name Arely PRN Reason Stop Dose Admin Dextrose/Sodium Chloride 1,000 mls @ 100 mls/hr 06/29/25 14:45 06/29/25 17:27 Dextrose 5% -0.45 Nacl 1000 Ml IV 07/29/25 14:44 0 mls/hr .Q10H MATIAS Infusion Dextrose/Sodium Chloride Confirm 06/29/25 15:18 Dextrose 5% -0.45 Nacl 1000 Ml Administered 06/29/25 15:19 Dose 1,000 mls @ ud IV .STK-MED ONE Lactated Ringer's 1,000 mls @ 150 mls/hr 06/29/25 17:26 06/29/25 17:29 Lactated Ringers IV 06/30/25 00:05 150 mls/hr .Q6H40M STA Administration Lactated Ringer's Confirm 06/29/25 17:28 Lactated Ringers Administered 06/29/25 17:29 Dose 1,000 mls @ ud IV .STK-MED ONE Lactated Ringer's 1,000 mls @ 125 mls/hr 06/30/25 01:30 06/30/25 01:11 Lactated Ringers IV 07/30/25 01:29 125 mls/hr .Q8H MATIAS Administration Metoclopramide HCl 10 mg 06/29/25 14:44 06/29/25 15:23 Metoclopramide Hcl 10 Mg/2 Ml Vial IV 06/29/25 14:45 10 mg STAT ONE Administration Metoclopramide HCl Confirm 06/29/25 15:18 Metoclopramide Hcl 10 Mg/2 Ml Vial Administered 06/29/25 15:19 Dose 10 mg .ROUTE .STK-MED ONE Metoclopramide HCl 10 mg 06/29/25 19:15 06/30/25 02:23 Metoclopramide Hcl 10 Mg/2 Ml Vial IV 07/29/25 19:14 10 mg Q8H MATIAS Administration Ondansetron HCl 4 mg 06/29/25 21:40 Ondansetron Hcl 4 Mg/2 Ml Vial IV 07/29/25 21:39 Q6H PRN PRN NAUSEA/VOMITING Ondansetron HCl 4 mg 06/29/25 21:43 06/30/25 05:57 Ondansetron Hcl 4 Mg/2 Ml Vial IV 07/29/25 21:41 4 mg STAT PRN Administration NAUSEA/VOMITING Assessment/Plan (1) Hyperemesis affecting , antepartum Current Visit: Yes Status: Acute Code(s): O21.0 - MILD HYPEREMESIS GRAVIDARUM (2) Hypokalemia Current Visit: Yes Status: Acute Code(s): E87.6 - HYPOKALEMIA
[2025-06-30] MEDS: TYLENOL 325 MG PO PRN (09:04)
[2025-06-30] MEDS: SODIUM CHLORIDE 0.9% IV SCH (09:31)
[2025-06-30] MEDS: THIAMINE IV SCH (09:31)
[2025-06-30] MEDS ORDERED: Reglan 10 MG/2 ML IV SCH (10:00)
[2025-06-30 12:08] LABS: Calcium 8.7 mg/dL (8.4-10.2); Carbon Dioxide 23.0 mmol/L (22-30); Creatinine 1 0.49 mg/dL (0.52-1.04); EST GLOMERULAR FILTRATION RATE 137.4 ML/MIN; Glucose 104.0 mg/dL (74-106); Potassium 3.6 mmol/L (3.5-5.1); SGOT/AST 77.0 U/L (14-36); SGPT/ALT 74.0 U/L (0-35); Total Protein 7.0 g/dL (6.3-8.2)
[2025-06-30 13:06] VITALS: BP 107/65; PULSE 68; TEMP 98.3; O2SAT 97
[2025-06-30] MEDS ORDERED: Zofran 4 MG/2 ML VIAL IV SCH (14:00)
== END 2025-06-30 13:25 | disposition home or self-care (01) ==
LOC: ED 12:33 → MED SURG 17:54
PROVIDERS: ADMIT Obstetrics & Gynecology; ATTEND Obstetrics & Gynecology
DX: O21.0 Mild hyperemesis gravidarum (principal); Z3A.14 14 weeks gestation of pregnancy; E86.0 Dehydration; D72.829 Elevated white blood cell count, unspecified; E87.6 Hypokalemia